=== PATIENT | male | born 1995 | race Caucasian/White ===

== ENCOUNTER 2017-02-15 17:10 | Emergency (ER) | payer OTHER ==
--- NOTE | 2017-02-15 19:21 | ED ORDER SUMMARY ---
..... Patient: KACEY MERA OrderSheet [facility] VisitID: [id number] [address] [place] [address] 21y, M Registration Date/Time: 02/15/2017 ORDER SHEET Weight: 76.2 kg (stated) Allergies: No Known Drug Allergy GENERAL ORDERS: EKG - ER Stat (17:23 02/15/2017 DDean R.N. per protocol) (Ack 17:24 LNations ER Tech1) (17:44 KHoerner) CBC w Diff Urgent (17:40 02/15/2017 HBivens A.R.N.P.) (Ack 17:48 LNations ER Tech1) (17:55 PWeiler ER Tech1) CMP Urgent (17:40 02/15/2017 HBivens A.R.N.P.) (Ack 17:48 LNations ER Tech1) (17:55 PWeiler ER Tech1) Vitals - Orthostatic (17:40 02/15/2017 HBivens A.R.N.P.) (Ack 17:45 KHoerner) (17:55 PWeiler ER Tech1) CPK Urgent (17:50 02/15/2017 HBivens A.R.N.P.) (Ack 17:51 LNations ER Tech1) (17:55 PWeiler ER Tech1) Troponin-I Urgent (17:50 02/15/2017 HBivens A.R.N.P.) (Ack 17:51 LNations ER Tech1) (17:55 PWeiler ER Tech1) Drafting Instructor (Continuous) (17:51 02/15/2017 HBivens A.R.N.P.) (Ack 17:52 LNations ER Tech1) (17:55 PWeiler ER Tech1) UA-Culture if indicated Urgent (17:51 02/15/2017 HBivens A.R.N.P.) (17:52 LNations ER Tech1) Urine Drug Screen Urgent (17:51 02/15/2017 HBivens A.R.N.P.) (17:52 LNations ER Tech1) Oxygen (2 L/min) (NC) (17:51 02/15/2017 HBivens A.R.N.P.) (Ack 17:52 LNations ER Tech1) (17:55 PWeiler ER Tech1) EKG - ER Stat (18:48 02/15/2017 HBivens A.R.N.P.) (Ack 18:50 LNations ER Tech1) (18:58 KHoerner) MEDICATION ORDERS: Aspirin PO 325 mg (Do not crush or chew, NOW) (17:51 02/15/2017 HBivens A.R.N.P.) (Ack 17:55 PWeiler ER Tech1) (18:08 DDean R.N.) IV FLUIDS: IV Saline Lock (17:40 02/15/2017 HBivens A.R.N.P.) (17:55 PWeiler ER Tech1) IV NS : initial bolus 1000 mL (1000 mL/hr), then none - (NOW) (17:40 02/15/2017 HBivens A.R.N.P.) (Ack 17:55 PWeiler ER Tech1) (18:08 DDean R.N.) Protonix IVP 40mg 40 mg (Mix in NS 10ml over 2min) (19:20 02/15/2017 HBivens A.R.N.P.) (19:21 DDean R.N.) ORDER SHEET NOTES: [Electronically signed by Abby Kaplan R.N. (19:36 02/15/2017)] [Electronically signed by Margy Samuel A.R.N.P. (20:03 02/15/2017)] [Electronically locked/signed by Abby Kaplan R.N. (19:36 02/15/2017)]
--- NOTE | 2017-02-15 19:21 | ED CLINICAL REPORT ---
Clinical Report - Physicians/Mid Levels [facility] [address] [place] [address] 02/15/2017 17:14 Patient: KACEY MERA Time Seen: 17:33; initial patient contact, initial documentation, patient care assumed. Arrived- By ambulance. Historian- patient. HISTORY OF PRESENT ILLNESS Is no longer unconscious. Chief Complaint: NEAR-SYNCOPE. This occurred just prior to arrival. Event was witnessed. The patient felt faint. No loss of consciousness, seizure activity, incontinence or apnea noted. Did not collapse or lose pulse. The event occurred during moderate exertion (moving car parts/door). The patient had preceding symptoms of light-headedness, nausea, dim vision, chest pain and warmth. No preceding symptoms of abdominal pain. The episode was brief and lasted seconds. No injuries noted. He currently has weakness. (was at work, moving car door, started having cp, then got lightheaded, dizzy, hard to breathe, and hands felt clammy, he sat down, s/s went away, got back up went back to work and cp came back, so coworkers called 911). Similar symptoms previously: None. Recent medical care: The patient was seen recently in the emergency department. ( was dx with ulcer last week). REVIEW OF SYSTEMS The patient has had dizziness and chest pain. No palpitations, abdominal pain, vomiting, diarrhea or fever. All systems otherwise negative, except as recorded above. PAST HISTORY Negative. SOCIAL HISTORY Never smoker. Occasional alcohol use. History of occasional drug use: marijuana. No recent travel. Is a local resident. FAMILY HISTORY Negative. ADDITIONAL NOTES The nursing notes have been reviewed with agreement regarding the chief complaint, HPI, ROS, PMH and patient medications and allergies. PHYSICAL EXAM Vital Signs: 02/15/2017 17:20 BP: 109/68. HR: 68. RR: 16. O2 saturation: 99%. Temp: 98.2 F. Pain level now: 4/10. Have been reviewed as normal and appear to be correct. Appearance: Alert. No acute distress. Eyes: Pupils equal, round and reactive to light. No nystagmus. Extraocular movements normal. ENT: Normal ENT inspection. TM's normal. Moist mucous membranes. Pharynx normal. Neck: Normal inspection. Neck supple. CVS: Normal heart rate and rhythm. Heart sounds normal. Pulses normal. Respiratory: No respiratory distress. Breath sounds normal. Abdomen: Soft and nontender. No organomegaly. Back: Normal inspection. Skin: Skin warm and dry. Normal skin color. No rash. Normal skin turgor. Extremities: Extremities exhibit normal ROM. No lower extremity edema. Neuro: Alert. Oriented X 3. Mood/affect normal. Speech normal. Cranial nerves normal (as tested). No cerebellar findings. No motor deficit. No sensory deficit. LABS, X-RAYS, AND EKG EKG: EKG time: (1740). Rate: 59. Non-specific ST segment / T wave abnormalities. The study has been interpreted contemporaneously by me (and dr natarajan). The EKG appears to be a good tracing. Interpretation time: 174. EKG #2: Normal. EKG time: (185). No acute process. No acute ischemia. Normal EKG. The study has been interpreted contemporaneously by me (and dr natarajan). The EKG appears to be a good tracing. Interpretation time: 185. Laboratory Tests: UA-Culture if indicated: (DOMINIC: 02/15/2017 17:50) ( MsgRcvd 02/15/2017 18:26) Final results Test Result Flag Units (Reference) URINE COLOR STRAW URINE APPEARANCE CLEAR URINE GLUCOSE NEGATIVE (NEGATIVE) URINE BILIRUBIN NEGATIVE (NEGATIVE) URINE KETONE NEGATIVE (NEGATIVE) URINE SPECIFIC GRAVITY 1.010 (1.010-1.030) URINE PH 7.5 (5.0-8.0) URINE PROTEIN NEGATIVE (NEGATIVE) URINE UROBILINOGEN 0.2 EU/dL (0.2-1.0) URINE NITRITE NEGATIVE (NEGATIVE) URINE BLOOD NEGATIVE (NEGATIVE) URINE LEUK ESTERASE NEGATIVE (NEGATIVE) URINE RBC NONE SEEN rbc/hpf (0-1) URINE WBC NONE SEEN wbc/hpf (0-1) URINE EPITHELIAL CELLS NONE SEEN EPI/hpf (0-5) URINE BACTERIA NONE SEEN (NONE SEEN) URINE COMMENT CULT NOT INDICATED URINE CULTURES ARE SET-UP BASED ON THE FOLLOWING CRITERIA:POSITIVE NITRITEPOSITIVE LEUKOCYTE ESTERASEGREATER THAN 10 WHITE BLOOD CELLSMODERATE (2+) OR GREATER BACTERIA CBC w Diff: (DOMINIC: 02/15/2017 17:50) ( MsgRcvd 02/15/2017 18:03) Final results Test Result Flag Units (Reference) WHITE BLOOD COUNT 7.7 K/uL (4.5-11.5) RED BLOOD COUNT 4.75 M/uL (4.50-5.90) HEMOGLOBIN 14.4 gm/dL (13.5-17.5) HEMATOCRIT 42.5 % (41.0-53.0) MEAN CELL VOLUME 90 fL (80-100) MEAN CORPUSCULAR HGB 30 pg (26-34) MEAN CORPUSCULAR HGB CONC 34 g/dL (31-37) RED CELL DISTRIBUTION WIDTH 12.4 % (11.6-14.8) PLATELET COUNT 168 K/uL (150-400) NEUTROPHIL % 63.7 % (50-75) LYMPH % 26.8 % (25-40) MONO % 6.4 % (3-14) EOSINOPHIL % 2.6 % (0-4) BASOPHIL % 0.5 % (0-2) Urine Drug Screen: (DOMINIC: 02/15/2017 17:50) ( MsgRcvd 02/15/2017 18:22) Final results Test Result Flag Units (Reference) AMPHETAMINE/METHAMPHETAMINE NEGATIVE (NEGATIVE) BARBITURATE NEGATIVE (NEGATIVE) BENZODIAZEPINE NEGATIVE (NEGATIVE) CANNABINOID POSITIVE H (NEGATIVE) COCAINE NEGATIVE (NEGATIVE) ECSTASY NEGATIVE (NEGATIVE) METHADONE NEGATIVE (NEGATIVE) OPIATE NEGATIVE (NEGATIVE) The urine drug screen is a qualitative screening test fordrug overdose and abuse. All screen results should beconsidered as presumptive.Drugs screened for are as follows:BenzodiazepinesCocaineAmphetamines/MetamphetaminesTHC (Tetrahydrocannabinol)OpiatesBarbituratesEcstasyMethadonePositive results are unconfirmed. For confirmation, notifythe lab for the specimen to be sent to the reference lab.All confirmations must be performed by a differentmethodology.The ingestion of natural herbal and plant productscontaining Ephedra/Ephedra metabolites can produce in urineone or more substances capable of cross reacting withamphetamine/methamphetamine immunoassays. These testsprovide a preliminary result only. A more specificalternative chemical method must be used to obtain aconfirmed analytical result. CPK: (DOMINIC: 02/15/2017 17:50) ( [facility] 02/15/2017 18:26) Final results Test Result Flag Units (Reference) CPK 221 U/L (24-260) TROPONIN I <0.05 L ng/mL (0.00-1.5) TROPONIN REFERENCE RANGE:<0.1 NEGATIVE0.1-1.5 INDETERMINANT>1.5 POSITIVE CMP: (DOMINIC: 02/15/2017 17:50) ( [facility] 02/15/2017 18:21) Final results Test Result Flag Units (Reference) GLUCOSE 89 mg/dL (70-110) BUN 19 H mg/dL (7-18) CREATININE 0.9 mg/dL (0.6-1.3) Estimated GFR >60 mL/min Estimated GFR- >60 mL/min Note: Persistent reduction over 3 months in eGFR<60 mL/min/1.73 m2 defines CKD. Patients with eGFR values>=60 mL/min/1.73 m2 may also have CKD if evidence ofpersistent proteinuria. Additional information may be foundat www.kidney.org. SODIUM 142 mmol/L (136-145) POTASSIUM 3.4 L mmol/L (3.5-5.1) CHLORIDE 107 mmol/L (98-107) CARBON DIOXIDE 25 mmol/L (21-32) CALCIUM 9.1 mg/dL (8.5-10.1) TOTAL PROTEIN 7.3 g/dL (6.4-8.2) ALBUMIN 4.4 g/dL (3.3-5.0) BILIRUBIN, TOTAL 0.5 mg/dL (0.0-1.0) ALKALINE PHOSPHATASE 55 U/L (46-116) AST (SGOT) 21 U/L (15-37) ALT (SGPT) 29 U/L (12-78) . PROGRESS AND PROCEDURES Course of Care: 02/15/2017 19:00 BP: 122/63. HR: 76. RR: 16. O2 saturation: 100%. Pain level now: 0/10. Vital Signs: have been reviewed as normal and appear to be correct. Patient counseled in person regarding the patient's stable condition, test results and diagnosis. 19:00. Differential Diagnosis: I considered situational stimulus, micturition, cough, sneezing, swallowing, post-prandial state, cardiac sinus hypersensitivity, sudden postural change, hypovolemia, autonomic neuropathy, adrenal insufficiency, arrhythmia, heart block, myocardial infarction, idiopathic hypertrophic subaortic stenosis, aortic stenosis, left ventricular dysfunction, hypoxia, hypoglycemia and hysteria as a possible cause of syncope in this patient. This is a partial list of diagnoses considered. (substance abuse). Above considerations are based on history, physical exam, reassessment, laboratory data and EKG. Differential diagnosis was discussed with patient. Disposition: Discharged home in good and improved condition (19:21). Condition: good and stable. CLINICAL IMPRESSION Near syncope .12 lead EKG performed. Atypical chest pain INSTRUCTIONS Warnings: GENERAL WARNINGS: Return or contact your physician immediately if your condition worsens or changes unexpectedly, if not improving as expected, or if other problems arise. SPECIFICALLY, return if you develop chest pain, neck pain, jaw pain, shoulder pain, arm pain, back pain, fluttering sensation in your chest, lightheadedness, fainting, numbness, weakness or extreme fatigue. Follow-up: Follow up with your doctor in two days even if well. Call for an appointment. Summary of care provided to patient. Understanding of the discharge instructions verbalized by patient. (Electronically signed by Margy Samuel A.R.N.P. 02/15/2017 20:03)
--- NOTE | 2017-02-15 19:21 | ED NURSING NOTES ---
Clinical Report - Nurses [facility] [address] [place] [address] 02/15/2017 17:14 Patient: KACEY MERA TRIAGE Triage time 1715. Acuity: LEVEL 3. Chief Complaint: DIZZINESS, WEAKNESS, LIGHT HEADED, NEAR-SYNCOPE and VERTIGO. 17:15. VERNON COMA SCORE: [place] Coma Scale: 15- eyes open spontaneously (4); best verbal response- oriented x 4 (5); best motor response- obeys commands (6). --17:29 Poly Bruner R.N. 17:20 02/15/17. BP: 109/68. HR: 68. RR: 16. O2 saturation: 99% on room air. Temp: 98.2 F. Pain level now: 4/10. --17:29 Poly Bruner R.N. Weight: 76.2 kg stated. Height/Length: 71 inches Per Patient. BMI: 23.4. --17:26 Poly Bruner R.N. Medications Stomach med for ulcers (call ghulam smith [place]). --17:25 Poly Bruner R.N. Allergies No Known Drug Allergy. --17:24 Poly Bruner R.N. History Arrived by EMS. Historian: patient. Accompanied by friend. No primary care physician. This started just prior to arrival Pt was moving a door off of a truck, felt midsternal chest pain with shaking hands and dizziness. Pt had near syncopal episode at work, and still having 4/10 chest pain. ( was dx with ulcers last week at [facility]. Pt has been having about family memeber who had heart attack). SOCIAL HX: Never smoker. Occasional alcohol use. (HASN'T had etoh in 1 month due to stomach issues). History of drug use: marijuana. --17:29 Poly Bruner R.N. Interventions ID band on patient. To treatment room. --17:29 Poly Bruner R.N. PHYSICAL ASSESSMENT 17:15. To room via stretcher. Patient gowned. GENERAL / NEURO / PSYCH: Oriented X 4. Appears anxious. Alert. Speech within normal limits. HEENT: No facial asymmetry noted. RESPIRATORY: Respirations not labored. CVS: Capillary refill less than 2 seconds. GI / : Abdomen soft. SKIN: Skin is warm and dry. --17:30 Poly Bruner R.N. NURSING PROGRESS NOTES 17:15. Oxygen administered. Monitoring of patient in place; (NSR). Patient gowned. Head of bed elevated. Reassurance given. Patient identifiers checked. Call light placed in reach. Side rails up. Bed placed in lowest position. Patient ready for evaluation- chart flagged. --17:30 Poly Bruner R.N. 17:50 02/15/2017 Site #1 started via IV in the left antecubital space with an 20g angiocath, with aseptic technique and good blood return; one attempt. Blood drawn: rainbow set. Labeled in the presence of the patient and sent to the lab. Saline lock flushed with 10 mL saline. --17:53 Keith Worthington ER Tech1 EKG time: (1740). EKG was ordered, performed by a tech and shown to the PA. ( Orthostatic vitals done). --18:02 Keith Worthington ER Tech1 18:00 02/15/17. BP: 120/60 taken while lying. Additional comments: Orthostatic vitals done. Blood pressure while sitting was 115/67 and blood pressure while standing was 116/72. --18:02 Keith Worthington ER Tech1 late entry -1745 pt up at bedside to use urinal 400 cc light yellow urine out. UA sent to lab. --18:07 Poly Bruner R.N. 17:55 02/15/2017 Started bag #1 1000 mL IV Fluids IV NS (Saline); at 1000 mL/hr over 1 hour(s) via site #1 via IV pump. IV patency established. IV site checked: no pain, redness, or swelling. IV flushed thoroughly pre- and post-medication administration. --18:08 Poly Bruner R.N. 18:00 02/15/2017 Aspirin PO 324 mg given. Allergies verified and confirmed 5 rights. --18:08 Poly Bruner R.N. 18:20. ( Pt on phone with Mom, states he still has some chest pain and lightheadedness). --18:26 Poly Bruner R.N. 18:28 02/15/17. BP: 119/75. HR: 67. RR: 16. O2 saturation: 100% on room air. Temp: deferred. Pain level now: 1/10. Additional comments: friend at bedside . --18:29 Poly Bruner R.N. 18:58 02/15/17. EKG time: (1855). EKG was performed by a tech and shown to the OIL SPREADER OPERATOR. repeat. --18:58 Josemanuel Ledezma 18:30 02/15/17. BP: 118/66. HR: 74. RR: 16. O2 saturation: 100% on room air. Temp: deferred. Pain level now: 0/10. Additional comments: friend at bedside, pt in no distress, asking if lab is done. --19:16 Poly Bruner R.N. 19:00 02/15/17. BP: 122/63. HR: 76. RR: 16. O2 saturation: 100%. Temp: deferred. Pain level now: 0/10. --19:17 Poly Bruner R.N. ( Report received from Poly Bruner, RN). --19:20 Russ Killian R.N. 19:10 02/15/2017 IV Fluids IV NS Discontinued: bag #1 infused upon discharge. Total amount infused: 1000 mL. IV patency established. IV site checked: no pain, redness, or swelling. IV flushed thoroughly. --19:26 Poly Bruner R.N. 19:21 02/15/2017 PROTONIX (Pantoprazole Sodium) IVP 40 mg given over 1 minute(s) via site #1. IV patency established. IV site checked: no pain, redness, or swelling. IV flushed thoroughly pre- and post-medication administration. IVP given by RN. --19:21 Poly Bruner R.N. DISPOSITION / DISCHARGE 19:23 02/15/17. BP: 122/63. HR: 75. RR: 15 (regular and unlabored). O2 saturation: 100%. Pain level now: 0/10. --19:24 Abby Kaplan R.N. 19:35 02/15/2017 Site #1 removed upon discharge. Catheter intact. Manual pressure and bandage applied. --19:35 Abby Kaplan R.N. Condition at departure: improved and stable. No learning barriers present. Discharge instructions provided and reviewed with the patient. Patient verbalized understanding. Written instructions provided in Vietnamese. The patient was discharged home and accompanied by pharmacy operations manager. He left the Emergency Department ambulatory and via private vehicle. Airline Transport Pilot driving. --19:36 Abby Kaplan R.N. Locked/Released at 02/15/2017 19:36 by Abby Kaplan R.N.
--- NOTE | 2017-02-15 19:21 | ED ORDER SUMMARY ---
..... Patient: KACEY MERA OrderSheet [facility] VisitID: [id number] [address] [place] [address] 21y, M Registration Date/Time: 02/15/2017 ORDER SHEET Weight: 76.2 kg (stated) Allergies: No Known Drug Allergy GENERAL ORDERS: EKG - ER Stat (17:23 02/15/2017 DDean R.N. per protocol) (Ack 17:24 LNations ER Tech1) (17:44 KHoerner) CBC w Diff Urgent (17:40 02/15/2017 HBivens A.R.N.P.) (Ack 17:48 LNations ER Tech1) (17:55 PWeiler ER Tech1) CMP Urgent (17:40 02/15/2017 HBivens A.R.N.P.) (Ack 17:48 LNations ER Tech1) (17:55 PWeiler ER Tech1) Vitals - Orthostatic (17:40 02/15/2017 HBivens A.R.N.P.) (Ack 17:45 KHoerner) (17:55 PWeiler ER Tech1) CPK Urgent (17:50 02/15/2017 HBivens A.R.N.P.) (Ack 17:51 LNations ER Tech1) (17:55 PWeiler ER Tech1) Troponin-I Urgent (17:50 02/15/2017 HBivens A.R.N.P.) (Ack 17:51 LNations ER Tech1) (17:55 PWeiler ER Tech1) Consular Officer (Continuous) (17:51 02/15/2017 HBivens A.R.N.P.) (Ack 17:52 LNations ER Tech1) (17:55 PWeiler ER Tech1) UA-Culture if indicated Urgent (17:51 02/15/2017 HBivens A.R.N.P.) (17:52 LNations ER Tech1) Urine Drug Screen Urgent (17:51 02/15/2017 HBivens A.R.N.P.) (17:52 LNations ER Tech1) Oxygen (2 L/min) (NC) (17:51 02/15/2017 HBivens A.R.N.P.) (Ack 17:52 LNations ER Tech1) (17:55 PWeiler ER Tech1) EKG - ER Stat (18:48 02/15/2017 HBivens A.R.N.P.) (Ack 18:50 LNations ER Tech1) (18:58 KHoerner) MEDICATION ORDERS: Aspirin PO 325 mg (Do not crush or chew, NOW) (17:51 02/15/2017 HBivens A.R.N.P.) (Ack 17:55 PWeiler ER Tech1) (18:08 DDean R.N.) IV FLUIDS: IV Saline Lock (17:40 02/15/2017 HBivens A.R.N.P.) (17:55 PWeiler ER Tech1) IV NS : initial bolus 1000 mL (1000 mL/hr), then none - (NOW) (17:40 02/15/2017 HBivens A.R.N.P.) (Ack 17:55 PWeiler ER Tech1) (18:08 DDean R.N.) Protonix IVP 40mg 40 mg (Mix in NS 10ml over 2min) (19:20 02/15/2017 HBivens A.R.N.P.) (19:21 DDean R.N.) ORDER SHEET NOTES: [Electronically signed by Abby Kaplan R.N. (19:36 02/15/2017)] [Electronically signed by Margy Samuel A.R.N.P. (20:03 02/15/2017)] [Electronically locked/signed by Abby Kaplan R.N. (19:36 02/15/2017)]
--- NOTE | 2017-02-15 19:21 | ED NURSING NOTES ---
Clinical Report - Nurses [facility] [address] [place] [address] 02/15/2017 17:14 Patient: KACEY MERA TRIAGE Triage time 1715. Acuity: LEVEL 3. Chief Complaint: DIZZINESS, WEAKNESS, LIGHT HEADED, NEAR-SYNCOPE and VERTIGO. 17:15. VERNON COMA SCORE: [place] Coma Scale: 15- eyes open spontaneously (4); best verbal response- oriented x 4 (5); best motor response- obeys commands (6). --17:29 Poly Bruner R.N. 17:20 02/15/17. BP: 109/68. HR: 68. RR: 16. O2 saturation: 99% on room air. Temp: 98.2 F. Pain level now: 4/10. --17:29 Poly Bruner R.N. Weight: 76.2 kg stated. Height/Length: 71 inches Per Patient. BMI: 23.4. --17:26 Poly Bruner R.N. Medications Stomach med for ulcers (call ghulam smith [place]). --17:25 Poly Bruner R.N. Allergies No Known Drug Allergy. --17:24 Poly Bruner R.N. History Arrived by EMS. Historian: patient. Accompanied by friend. No primary care physician. This started just prior to arrival Pt was moving a door off of a truck, felt midsternal chest pain with shaking hands and dizziness. Pt had near syncopal episode at work, and still having 4/10 chest pain. ( was dx with ulcers last week at [facility]. Pt has been having about family memeber who had heart attack). SOCIAL HX: Never smoker. Occasional alcohol use. (HASN'T had etoh in 1 month due to stomach issues). History of drug use: marijuana. --17:29 Poly Bruner R.N. Interventions ID band on patient. To treatment room. --17:29 Poly Bruner R.N. PHYSICAL ASSESSMENT 17:15. To room via stretcher. Patient gowned. GENERAL / NEURO / PSYCH: Oriented X 4. Appears anxious. Alert. Speech within normal limits. HEENT: No facial asymmetry noted. RESPIRATORY: Respirations not labored. CVS: Capillary refill less than 2 seconds. GI / : Abdomen soft. SKIN: Skin is warm and dry. --17:30 Poly Bruner R.N. NURSING PROGRESS NOTES 17:15. Oxygen administered. Monitoring of patient in place; (NSR). Patient gowned. Head of bed elevated. Reassurance given. Patient identifiers checked. Call light placed in reach. Side rails up. Bed placed in lowest position. Patient ready for evaluation- chart flagged. --17:30 Poly Bruner R.N. 17:50 02/15/2017 Site #1 started via IV in the left antecubital space with an 20g angiocath, with aseptic technique and good blood return; one attempt. Blood drawn: rainbow set. Labeled in the presence of the patient and sent to the lab. Saline lock flushed with 10 mL saline. --17:53 Keith Worthington ER Tech1 EKG time: (1740). EKG was ordered, performed by a tech and shown to the PA. ( Orthostatic vitals done). --18:02 Keith Worthington ER Tech1 18:00 02/15/17. BP: 120/60 taken while lying. Additional comments: Orthostatic vitals done. Blood pressure while sitting was 115/67 and blood pressure while standing was 116/72. --18:02 Keith Worthington ER Tech1 late entry -1745 pt up at bedside to use urinal 400 cc light yellow urine out. UA sent to lab. --18:07 Poly Bruner R.N. 17:55 02/15/2017 Started bag #1 1000 mL IV Fluids IV NS (Saline); at 1000 mL/hr over 1 hour(s) via site #1 via IV pump. IV patency established. IV site checked: no pain, redness, or swelling. IV flushed thoroughly pre- and post-medication administration. --18:08 Poly Bruner R.N. 18:00 02/15/2017 Aspirin PO 324 mg given. Allergies verified and confirmed 5 rights. --18:08 Poly Bruner R.N. 18:20. ( Pt on phone with Mom, states he still has some chest pain and lightheadedness). --18:26 Poly Bruner R.N. 18:28 02/15/17. BP: 119/75. HR: 67. RR: 16. O2 saturation: 100% on room air. Temp: deferred. Pain level now: 1/10. Additional comments: friend at bedside . --18:29 Poly Bruner R.N. 18:58 02/15/17. EKG time: (1855). EKG was performed by a tech and shown to the QUALITY ASSURANCE MONITOR BODY. repeat. --18:58 Josemanuel Ledezma 18:30 02/15/17. BP: 118/66. HR: 74. RR: 16. O2 saturation: 100% on room air. Temp: deferred. Pain level now: 0/10. Additional comments: friend at bedside, pt in no distress, asking if lab is done. --19:16 Poly Bruner R.N. 19:00 02/15/17. BP: 122/63. HR: 76. RR: 16. O2 saturation: 100%. Temp: deferred. Pain level now: 0/10. --19:17 Poly Bruner R.N. ( Report received from Poly Bruner, RN). --19:20 Russ Killian R.N. 19:10 02/15/2017 IV Fluids IV NS Discontinued: bag #1 infused upon discharge. Total amount infused: 1000 mL. IV patency established. IV site checked: no pain, redness, or swelling. IV flushed thoroughly. --19:26 Poly Bruner R.N. 19:21 02/15/2017 PROTONIX (Pantoprazole Sodium) IVP 40 mg given over 1 minute(s) via site #1. IV patency established. IV site checked: no pain, redness, or swelling. IV flushed thoroughly pre- and post-medication administration. IVP given by RN. --19:21 Poly Bruner R.N. DISPOSITION / DISCHARGE 19:23 02/15/17. BP: 122/63. HR: 75. RR: 15 (regular and unlabored). O2 saturation: 100%. Pain level now: 0/10. --19:24 Abby Kaplan R.N. 19:35 02/15/2017 Site #1 removed upon discharge. Catheter intact. Manual pressure and bandage applied. --19:35 Abby Kaplan R.N. Condition at departure: improved and stable. No learning barriers present. Discharge instructions provided and reviewed with the patient. Patient verbalized understanding. Written instructions provided in Icelandic. The patient was discharged home and accompanied by skin drier. He left the Emergency Department ambulatory and via private vehicle. Sandblaster Glass driving. --19:36 Abby Kaplan R.N. Locked/Released at 02/15/2017 19:36 by Abby Kaplan R.N.
--- NOTE | 2017-02-15 20:03 | ED MAR SUMMARY ---
..... Medication Administration Record [facility] [address] [place] [address] Patient: KACEY MERA Visit ID: [id number] 21y, M Weight: 76.2 kg Height/Length: 71 in BMI: 23.4 ALLERGIES: No Known Drug Allergy Start 17:55 02/15/2017 Poly Bruner R.N., Stop 19:10 02/15/2017 Poly Bruner R.N. Medication Administered: IV NS (SALINE), Dose: IV Fluids over 1 hour(s), Rate: 1000 mL/hr, Dispensed: 1000 mL bag, Site: #1 left AC. Medication Ordered: IV NS : initial bolus 1000 mL (1000 mL/hr), then none - (NOW). Given 18:00 02/15/2017 Poly Bruner R.N. Medication Administered: ASPIRIN [PO], Dose: 324 mg PO. Medication Ordered: Aspirin PO 325 mg (Do not crush or chew, NOW). Given 19:21 02/15/2017 Poly Bruner R.N. Medication Administered: PROTONIX [IVP] (PANTOPRAZOLE SODIUM), Dose: 40 mg IVP over 1 minute(s), Site: #1 left AC. Medication Ordered: Protonix IVP 40mg 40 mg (Mix in NS 10ml over 2min).
--- NOTE | 2017-02-15 20:03 | ED MED RECONCILIATION SUMMARY ---
Patient: KACEY MERA Medication Reconciliation Report [facility] VisitID: [id number] [address] [place] [address] 21y, M Registration Date/Time: 02/15/2017 Weight: 76.2 kg Height/Length: 71 in. BMI: 23.4 ALLERGIES: No Known Drug Allergy The patient's Home Medications are listed below: THE FOLLOWING MEDICATIONS NEED TO BE RECONCILED: Stomach med for ulcers (call ghulam smith in [facility]) The source(s) of the original Home Medication information: Not obtained. The following Medications were given to the patient in the Emergency Department: IV NS IV Fluids bolus 0, then 1000 mL/hr, administered: 02/15/2017 5:55:00 PM Aspirin [PO] PO 324 mg, administered: 02/15/2017 6:00:00 PM PROTONIX [IVP] IVP 40 mg, administered: 02/15/2017 7:21:00 PM The following Medications were prescribed to the patient: None.
--- NOTE | 2017-02-15 20:03 | ED DISCHARGE INSTRUCTIONS ---
Patient: KACEY MERA General Instructions [facility] VisitID: [id number] [place] [address] 21y, M Registration Date/Time: 02/15/2017 Near syncope .12 lead EKG performed. Atypical chest pain INSTRUCTIONS Warnings: GENERAL WARNINGS: Return or contact your physician immediately if your condition worsens or changes unexpectedly, if not improving as expected, or if other problems arise. SPECIFICALLY, return if you develop chest pain, neck pain, jaw pain, shoulder pain, arm pain, back pain, fluttering sensation in your chest, lightheadedness, fainting, numbness, weakness or extreme fatigue. Follow-up: Follow up with your doctor in two days even if well. Call for an appointment. Summary of care provided to patient. Understanding of the discharge instructions verbalized by patient. ADDITIONAL INFORMATION Near-Fainting:Uncertain Cause Fainting (syncope) is a temporary loss of consciousness ("passing out"). It occurs when blood flow to the brain is reduced. Near-fainting ("near-syncope") is like fainting, but you do not fully "pass out." The common minor causes of near fainting include sudden fear, pain, emotional stress, overexertion, or quickly standing up after sitting or lying for a long time. The more serious causes for near fainting are due to either a very slow or very fast heart beat, dehydration, anemia, blood loss, problems related to the heart, or taking too much high blood pressure medicine. The exact cause of your episode is not certain. More tests may be required. Therefore, it is important that you follow up with your doctor as advised. Home Care: 1) Rest today. Resume your normal activities as soon as you are feeling back to normal. 2) If you become light-headed or dizzy, lie down right away or sit with your head between your knees. 3) Because we do not know the exact cause of your near fainting spell, another spell could occur without warning. Therefore, do not drive a car or use dangerous equipment. D o not take a bath alone (use a shower instead). Do not swim alone. You can resume these activities when your doctor says that you are no longer in danger of having a near fainting spell. 4) Stay well hydrated by drinking enough fluid each day. Follow Up with your doctor as instructed. Get Prompt Medical Attention if any of the following occur: -- Another fainting spell occurs, and it is not explained by the common causes listed above -- Chest, arm, neck, jaw, back or abdominal pain -- Shortness of breath -- Weakness, tingling or numbness in one side of the face, one arm or leg -- Slurred speech, confusion, trouble walking or seeing -- Seizure -- Blood in vomit, stools (black or red color) -- (In women) unexpected vaginal bleeding Chest Pain, Noncardiac Based on your visit today, the exact cause of your chest pain is not certain. Your condition does not seem serious and your pain does not appear to be coming from your heart. However, sometimes the signs of a serious problem take more time to appear. Therefore, please watch for the warning signs listed below. Home Care: Rest today and avoid strenuous activity. Take any prescribed medicine as directed. Follow Up with your doctor or this facility as instructed or if you do not start to feel better within 24 hours. Get Prompt Medical Attention if any of the following occur: A change in the type of pain: if it feels different, becomes more severe, lasts longer, or begins to spread into your shoulder, arm, neck, jaw or back Shortness of breath or increased pain with breathing Cough with dark colored sputum (phlegm) or blood Weakness, dizziness, or fainting Fever of 100.4F (38C) or higher, or as directed by your healthcare provider Swelling, pain or redness in one leg Chest Pain, Uncertain Cause Chest pain can happen for a number of reasons. Sometimes the cause can not be determined. If yourcondition does not seem serious, and your pain does not appear to be coming from your heart, your doctor may recommend watching it closely. Sometimes the signs of a serious problem take more time to appear. Therefore, watch for the warning signs listed below. Home care After your visit, follow these recommendations: Rest today and avoid strenuous activity. Take any prescribed medicine as directed. Follow-up care Follow up with your doctor or this facility as instructed or if you do not start to feel better within 24 hours. Call 911 Get immediate medical attention if any of the following occur: A change in the type of pain: if it feels different, becomes more severe, lasts longer, or begins to spread into your shoulder, arm, neck, jaw or back Shortness of breath or increased pain with breathing Weakness, dizziness, or fainting Rapid heart beat Get prompt medical attention Call your doctor right away if any of the following occur: Cough with dark colored sputum (phlegm) or blood Fever of 100.4F(38C) or higher, or as directed by your health care provider Swelling, pain or redness in one leg You have been given the following additional information: Near Syncope, Unknown Chest Pain, Noncardiac Chest Pain, Uncertain Cause (Electronically signed by Margy Samuel A.R.N.P. 02/15/2017 20:03)
--- NOTE | 2017-02-15 20:03 | ED MAR SUMMARY ---
..... Medication Administration Record [facility] [address] [place] [address] Patient: KACEY MERA Visit ID: [id number] 21y, M Weight: 76.2 kg Height/Length: 71 in BMI: 23.4 ALLERGIES: No Known Drug Allergy Start 17:55 02/15/2017 Poly Bruner R.N., Stop 19:10 02/15/2017 Poly Bruner R.N. Medication Administered: IV NS (SALINE), Dose: IV Fluids over 1 hour(s), Rate: 1000 mL/hr, Dispensed: 1000 mL bag, Site: #1 left AC. Medication Ordered: IV NS : initial bolus 1000 mL (1000 mL/hr), then none - (NOW). Given 18:00 02/15/2017 Poly Bruner R.N. Medication Administered: ASPIRIN [PO], Dose: 324 mg PO. Medication Ordered: Aspirin PO 325 mg (Do not crush or chew, NOW). Given 19:21 02/15/2017 Poly Bruner R.N. Medication Administered: PROTONIX [IVP] (PANTOPRAZOLE SODIUM), Dose: 40 mg IVP over 1 minute(s), Site: #1 left AC. Medication Ordered: Protonix IVP 40mg 40 mg (Mix in NS 10ml over 2min).
--- NOTE | 2017-02-15 20:03 | ED MED RECONCILIATION SUMMARY ---
Patient: KACEY MERA Medication Reconciliation Report [facility] VisitID: [id number] [address] [place] [address] 21y, M Registration Date/Time: 02/15/2017 Weight: 76.2 kg Height/Length: 71 in. BMI: 23.4 ALLERGIES: No Known Drug Allergy The patient's Home Medications are listed below: THE FOLLOWING MEDICATIONS NEED TO BE RECONCILED: Stomach med for ulcers (call ghulam smith in [facility]) The source(s) of the original Home Medication information: Not obtained. The following Medications were given to the patient in the Emergency Department: IV NS IV Fluids bolus 0, then 1000 mL/hr, administered: 02/15/2017 5:55:00 PM Aspirin [PO] PO 324 mg, administered: 02/15/2017 6:00:00 PM PROTONIX [IVP] IVP 40 mg, administered: 02/15/2017 7:21:00 PM The following Medications were prescribed to the patient: None.
== END 2017-02-15 19:35 | disposition home or self-care (01) ==
LOC: ED SRH 17:10
DX: R55 Syncope and collapse (principal); R07.89 Other chest pain
CPT/HCPCS: 90004; 90100; 90616; 92610; 92760; 92761; 92762; 92763; 92764; 92765; 92766; 92767; 95059